=== PATIENT | female | born 1980 | race Caucasian/White ===

== ENCOUNTER 2018-09-01 20:32 | Emergency (ER) | payer OTHER ==
[~2018-09-01] VITALS: Ht 162.6 cm; Wt 84.4 kg
[2018-09-01 21:02] VITALS: Ht 162.6 cm; Wt 84.4 kg
[2018-09-01 21:38] LABS: BASOPHIL % 0.5 % (0-2); PLATELET COUNT 219 x10^3mcL (130-400)
[2018-09-01 21:48] LABS: CALCIUM 9.2 mg/dL (8.5-10.1); CARBON DIOXIDE 27.9 mmol/L (21-32); CHLORIDE SERUM 106 mmol/L (98-107); CREATININE SERUM 0.6 mg/dL (0.6-1.0); GFR1 > 60 mL/min; GLUCOSE SERUM 89 mg/dL (74-106); POTASSIUM SERUM 4.3 mmol/L (3.5-5.1); SODIUM SERUM 141 mmol/L (136-145)
[2018-09-01 21:57] LABS: ALBUMIN 3.4 g/dL (3.4-5.0); ALKALINE PHOSPHATASE 60 U/L (46-116); ALT/SGPT 19 U/L (14-59); AST/SGOT 10 U/L (15-37); BILIRUBIN TOTAL 0.75 mg/dL (0.20-1.00)
[2018-09-01 23:56] VITALS: BP 131/86
== END 2018-09-01 23:56 | disposition home or self-care (01) ==
LOC: ED 20:32
DX: K59.00 Constipation, unspecified (principal); R10.2 Pelvic and perineal pain; R07.81 Pleurodynia
CPT/HCPCS: 36415